=== PATIENT | male | born 1960 | race Caucasian/White ===

== ENCOUNTER 2018-07-29 09:02 | Emergency (ER) | payer MEDICAID ==
[~2018-07-29] VITALS: Ht 170.2 cm; Wt 95.5 kg
[2018-07-29] MEDS ORDERED: meclizine 12.5mg tablet PO ONE (09:20)
[2018-07-29] MEDS ORDERED: ondansetron/PF 4mg/2ml inj IV ONE (09:20)
[2018-07-29] MEDS ORDERED: normal saline 1000ML IV soln IVB ONE (09:20)
[2018-07-29] MEDS ORDERED: MECL-111 PO (09:52)
[2018-07-29] MEDS ORDERED: ONDA4TAB6 PO (09:52)
[2018-07-29 10:30] VITALS: BP 154/88
== END 2018-07-29 11:36 | disposition home or self-care (01) ==
LOC: ER 09:03
DX: R42 Dizziness and giddiness (principal); R11.2 Nausea with vomiting, unspecified; Z79.899 Other long term (current) drug therapy
CPT/HCPCS: 93005; 96361; 96374; 99283; J2405; J7030; J8597

== ENCOUNTER 2020-09-27 19:50 | Emergency (ER) | payer MEDICAID ==
[~2020-09-27] VITALS: Ht 172.7 cm; Wt 97.7 kg
[~2020-09-27 19:50] MED LIST: MECL-159 PO; ONDA4TAB6 PO
[2020-09-27] MEDS ORDERED: normal saline 1000ML IV soln IVB ONE (20:05)
--- NOTE | 2020-09-27 20:20 | NUR ---
PATIENT IN [place], CONTACTAND C DIF PRECAUTIONS
[2020-09-27 20:28] LABS: BASOPHILS % (AUTO) 0.3 % (0-1); EOSINOPHILS # (AUTO) 0.4 X10'3 (0-0.9); EOSINOPHILS % (AUTO) 2.8 % (0-6); HEMATOCRIT 45.7 % (42.0-52.0); HEMOGLOBIN 15.6 g/dl (14.0-17.9); LYMPHOCYTES # (AUTO) 2.2 X10'3 (1.1-4.8); MEAN CORPUSCULAR HGB CONC 34.1 g/dL (33.0-36.5); MEAN CORPUSCULAR VOLUME 93.7 FL (78-98); MEAN PLATELET VOLUME 9.2 FL (7.4-10.4); MONOCYTES # (AUTO) 1.7 X10'3 (0-0.9); MONOCYTES % (AUTO) 11.8 % (2-12); NEUTROPHILS # (AUTO) 10.2 X10'3 (1.8-7.7); NEUTROPHILS % (AUTO) 70.1 % (42-75); PLATELET COUNT 245 X10'3 (140-440); RED BLOOD COUNT 4.87 X10'6 (4.70-6.10); RED CELL DISTRIBUTION WIDTH 12.8 % (11.5-14.5); WHITE BLOOD COUNT 14.5 X10'3 (4.5-11.0)
--- NOTE | 2020-09-27 20:28 | NUR ---
COVID SWAB OBTAINED
[2020-09-27 20:44] LABS: ALANINE AMINOTRANSFERASE 88 U/L (12-78); ALBUMIN/GLOBULIN RATIO 1.1 (1.1-1.5); ALKALINE PHOSPHATASE 64 IU/L (46-116); ANION GAP 10 (8-16); ASPARTATE AMINO TRANSFERASE 25 U/L (10-37); BILIRUBIN,TOTAL 0.4 MG/DL (0.1-1.0); BLOOD UREA NITROGEN 26 MG/DL (7-18); BUN/CREATININE RATIO 20.6 (5.4-32.0); CALCIUM 10.1 MG/DL (8.5-10.1); CHLORIDE 104 MMOL/L (99-107); CREATININE 1.26 MG/DL (0.60-1.10); GLUCOSE 113 MG/DL (70-104); POTASSIUM 3.7 MMOL/L (3.5-5.1); SODIUM 141 MMOL/L (135-145); TOTAL CARBON DIOXIDE 27.3 MMOL/L (24-32); TOTAL PROTEIN 7.8 G/DL (6.4-8.2); eGFR 58 ML/MIN
[2020-09-27 20:46] LABS: LIPASE 63 U/L (73-393); MAGNESIUM 1.8 MG/DL (1.5-2.4); TROPONIN I < 0.04 NG/ML (0.0-0.05)
--- NOTE | 2020-09-27 21:31 | NUR ---
COVID TEST IS NEG. PATIENT STATES HE IS FEELING IMPROVED. SOME LOOSE STOOL IN BEDSIDE COMMODE. SOME STOMACH CRAMPING IS PRESENT. ACTIVE BOWEL SOUNDS.
--- NOTE | 2020-09-27 21:56 | NUR ---
PATIENT HAD A "BLOW OUT" : LIGHT SHIPLEY STOOL ON FLOOR, COULD NOT MAKE IT TO COMMODE IN TIME. STOOL SENT FOR C DIF FLOOR BLEACHED AND CABLES BLEACHED, PATIENT DENIED NEED TO CLEAN HIMSELF UP, FRESH WIPES LEFT IN ROOM
[2020-09-27] MEDS ORDERED: normal saline 1000ml 1,000 ML IV ONE ×2 (22:05)
[2020-09-27 22:50] LABS: CLARITY,URINE CLEAR (Clear); COLOR,URINE AMBER (Yellow); GLUCOSE, URINE NEGATIVE (Neg); KETONES,URINE TRACE mg/dl (Neg); LEUKOCYTE ESTERASE ,URINE NEGATIVE (Neg); NITRITES, URINE NEGATIVE (Neg); OCCULT BLOOD,URINE NEGATIVE (Neg); PH,URINE 5.5 (4.8-8.0); PROTEIN,URINE NEGATIVE (Neg); UROBILINOGEN,URINE 0.2 E.U/dL (0.2-1.0)
[2020-09-27 23:05] LABS: UA COLLECTION TYPE CLN CATCH MIDSTREAM
--- NOTE | 2020-09-27 23:31 | NUR ---
IV DC'D, CATH INTACT. PATIENT EXHIBITS NORMAL GAIT. DISCHARGE INSTRUCTIONS REVIEWED WITH PATIENT. HE EXHIBIT UNDERSTANDING. PATIENT IS AWAITING A HOSPITAL PROVIDED [facility] TO [place].
[2020-09-27 23:33] VITALS: BP 147/89
[2020-09-28 07:35] LABS: C DIFF ANTIGEN NEGATIVE (NEGATIVE); C DIFF SPECIMEN=DIARRHEA? ACCEPTABLE; C DIFFICILE TOXINS A&B NEGATIVE (Neg)
== END 2020-09-27 23:37 | disposition home or self-care (01) ==
LOC: ER 19:51
DX: R19.7 Diarrhea, unspecified (principal); Z20.822 Contact with and (suspected) exposure to COVID-19; R53.83 Other fatigue; R11.10 Vomiting, unspecified; Z79.899 Other long term (current) drug therapy
CPT/HCPCS: 36415; 71045; 80053; 81003; 83605; 83690; 83735; 84145; 84484; 85025; 87040; 87324; 87449; 87635; 96360; 99284; C9803; J7030